=== PATIENT | male | born 1970 | race American Indian/Alaskan Native ===

== ENCOUNTER 2017-06-01 10:17 | Outpatient (CLI) | payer MEDICARE ==
[2017-06-01] MEDS ORDERED: XYLOCAINE TOPICAL 4% TP ONE (10:44)
== END 2017-06-01 10:18 | disposition home or self-care (01) ==
LOC: WOUND 10:17
PROVIDERS: ATTEND Internal Medicine
DX: L89.893 Pressure ulcer of other site, stage 3 (principal); G60.3 Idiopathic progressive neuropathy; G82.21 Paraplegia, complete; F17.200 Nicotine dependence, unspecified, uncomplicated
CPT/HCPCS: 11042; 11721; G0463

== ENCOUNTER 2017-06-15 09:11 | Outpatient (CLI) | payer MEDICARE ==
[2017-06-15] MEDS ORDERED: XYLOCAINE TOPICAL 4% TP ONE ×2 (10:05→10:22)
== END 2017-06-15 09:12 | disposition home or self-care (01) ==
LOC: WOUND 09:11
PROVIDERS: ATTEND Internal Medicine
DX: L89.893 Pressure ulcer of other site, stage 3 (principal); L97.512 Non-pressure chronic ulcer of other part of right foot with fat layer exposed; G60.3 Idiopathic progressive neuropathy; G82.21 Paraplegia, complete; F17.200 Nicotine dependence, unspecified, uncomplicated

== ENCOUNTER 2017-06-29 09:02 | Outpatient (CLI) | payer MEDICARE ==
[2017-06-29] MEDS ORDERED: XYLOCAINE TOPICAL 4% TP ONE (09:15)
== END 2017-06-29 09:03 | disposition home or self-care (01) ==
LOC: WOUND 09:02
PROVIDERS: ATTEND Internal Medicine
DX: L89.893 Pressure ulcer of other site, stage 3 (principal); L97.512 Non-pressure chronic ulcer of other part of right foot with fat layer exposed; G82.21 Paraplegia, complete; G60.3 Idiopathic progressive neuropathy; F17.200 Nicotine dependence, unspecified, uncomplicated

== ENCOUNTER 2017-07-23 09:10 | Outpatient (CLI) | payer MEDICARE ==
[2017-07-23] MEDS ORDERED: XYLOCAINE TOPICAL 4% TP ONE ×2 (09:31→09:40)
== END 2017-07-23 09:11 | disposition home or self-care (01) ==
LOC: WOUND 09:10
PROVIDERS: ATTEND Nurse Practitioner
DX: L89.893 Pressure ulcer of other site, stage 3 (principal); L97.512 Non-pressure chronic ulcer of other part of right foot with fat layer exposed; G82.21 Paraplegia, complete; G60.3 Idiopathic progressive neuropathy; F17.200 Nicotine dependence, unspecified, uncomplicated

== ENCOUNTER 2017-08-13 09:07 | Outpatient (CLI) | payer MEDICARE ==
[2017-08-13] MEDS ORDERED: XYLOCAINE TOPICAL 4% TP ONE (09:34)
== END 2017-08-13 09:08 | disposition home or self-care (01) ==
LOC: WOUND 09:07
PROVIDERS: ATTEND Surgery
DX: L89.893 Pressure ulcer of other site, stage 3 (principal); G82.21 Paraplegia, complete; G60.3 Idiopathic progressive neuropathy; F17.200 Nicotine dependence, unspecified, uncomplicated

== ENCOUNTER 2017-08-20 09:15 | Outpatient (CLI) | payer MEDICARE ==
[2017-08-20] MEDS ORDERED: XYLOCAINE TOPICAL 4% TP ONE ×2 (09:16→09:21)
== END 2017-08-20 09:16 | disposition home or self-care (01) ==
LOC: WOUND 09:15
PROVIDERS: ATTEND Surgery
DX: L89.893 Pressure ulcer of other site, stage 3 (principal); G82.21 Paraplegia, complete; G60.3 Idiopathic progressive neuropathy; F17.200 Nicotine dependence, unspecified, uncomplicated

== ENCOUNTER 2017-09-03 09:08 | Outpatient (CLI) | payer MEDICARE ==
[2017-09-03] MEDS ORDERED: XYLOCAINE TOPICAL 4% TP ONE (09:43)
== END 2017-09-03 09:09 | disposition home or self-care (01) ==
LOC: WOUND 09:08
PROVIDERS: ATTEND Surgery
DX: L89.893 Pressure ulcer of other site, stage 3 (principal); G82.21 Paraplegia, complete; G60.3 Idiopathic progressive neuropathy; F17.200 Nicotine dependence, unspecified, uncomplicated

== ENCOUNTER 2017-09-17 09:10 | Outpatient (CLI) | payer MEDICARE ==
[2017-09-17] MEDS ORDERED: XYLOCAINE TOPICAL 4% TP ONE (09:15)
== END 2017-09-17 09:11 | disposition home or self-care (01) ==
LOC: WOUND 09:10
PROVIDERS: ATTEND Surgery
DX: L89.893 Pressure ulcer of other site, stage 3 (principal); G82.21 Paraplegia, complete; G60.3 Idiopathic progressive neuropathy; F17.200 Nicotine dependence, unspecified, uncomplicated
CPT/HCPCS: 29581

== ENCOUNTER 2017-09-24 09:09 | Outpatient (CLI) | payer MEDICARE ==
[2017-09-24] MEDS ORDERED: XYLOCAINE TOPICAL 4% TP ONE ×2 (09:22→09:29)
== END 2017-09-24 09:10 | disposition home or self-care (01) ==
LOC: WOUND 09:09
PROVIDERS: ATTEND Surgery
DX: L89.893 Pressure ulcer of other site, stage 3 (principal); G82.21 Paraplegia, complete; G60.3 Idiopathic progressive neuropathy; F17.200 Nicotine dependence, unspecified, uncomplicated

== ENCOUNTER 2017-10-01 10:53 | Outpatient (CLI) | payer MEDICARE ==
[2017-10-01] MEDS ORDERED: XYLOCAINE TOPICAL 4% TP ONE ×2 (11:21→13:42)
== END 2017-10-01 10:54 | disposition home or self-care (01) ==
LOC: WOUND 10:53
PROVIDERS: ATTEND Surgery
DX: L89.893 Pressure ulcer of other site, stage 3 (principal); G82.21 Paraplegia, complete; G60.3 Idiopathic progressive neuropathy; F17.200 Nicotine dependence, unspecified, uncomplicated

== ENCOUNTER 2017-10-29 09:10 | Outpatient (CLI) | payer MEDICARE ==
[~2017-10-29 09:10] MED LIST: XYLOCAINE TOPICAL 4% TP ONE
== END 2017-10-29 09:11 | disposition home or self-care (01) ==
LOC: WOUND 09:10
PROVIDERS: ATTEND Surgery
DX: L89.893 Pressure ulcer of other site, stage 3 (principal); G82.21 Paraplegia, complete; G60.3 Idiopathic progressive neuropathy; F17.200 Nicotine dependence, unspecified, uncomplicated
CPT/HCPCS: 99213; G0463

== ENCOUNTER 2017-11-13 09:05 | Outpatient (CLI) | payer MEDICARE ==
[2017-11-13] MEDS ORDERED: SODIUM CHLORIDE FLUSH SYRINGE 10 ML IV ONE ×2 (09:33→12:31)
== END 2017-11-13 09:06 | disposition home or self-care (01) ==
LOC: WOUND 09:05
PROVIDERS: ATTEND Surgery
DX: L89.893 Pressure ulcer of other site, stage 3 (principal); G82.21 Paraplegia, complete; G60.3 Idiopathic progressive neuropathy; F17.200 Nicotine dependence, unspecified, uncomplicated
CPT/HCPCS: 15275; Q4158; 15271

== ENCOUNTER 2017-11-19 11:38 | Outpatient (CLI) | payer MEDICARE ==
[2017-11-19] MEDS ORDERED: SODIUM CHLORIDE FLUSH SYRINGE 10 ML IV ONE ×2 (12:12→14:35)
== END 2017-11-19 11:39 | disposition home or self-care (01) ==
LOC: WOUND 11:38
PROVIDERS: ATTEND Surgery
DX: L89.893 Pressure ulcer of other site, stage 3 (principal); G82.21 Paraplegia, complete; G60.3 Idiopathic progressive neuropathy; F17.200 Nicotine dependence, unspecified, uncomplicated
CPT/HCPCS: 15275; Q4158; 15271

== ENCOUNTER 2017-11-27 09:07 | Outpatient (CLI) | payer MEDICARE ==
[2017-11-27] MEDS ORDERED: SODIUM CHLORIDE FLUSH SYRINGE 10 ML IV ONE ×2 (09:24→10:52)
== END 2017-11-27 09:08 | disposition home or self-care (01) ==
LOC: WOUND 09:07
PROVIDERS: ATTEND Surgery
DX: L89.893 Pressure ulcer of other site, stage 3 (principal); G82.21 Paraplegia, complete; G60.3 Idiopathic progressive neuropathy; F17.200 Nicotine dependence, unspecified, uncomplicated
CPT/HCPCS: 15271; Q4158

== ENCOUNTER 2017-12-04 09:02 | Outpatient (CLI) | payer MEDICARE ==
[2017-12-04] MEDS ORDERED: SODIUM CHLORIDE FLUSH SYRINGE 10 ML IV ONE (09:25)
[2017-12-04] MEDS ORDERED: AD OINTMENT TP ONE (09:25)
[2017-12-04] MEDS ORDERED: AD OINTMENT TP PRN (12:00)
[2017-12-04] MEDS ORDERED: SODIUM CHLORIDE FLUSH SYRINGE 10 ML IV PRN (12:00)
== END 2017-12-04 09:03 | disposition home or self-care (01) ==
LOC: WOUND 09:02
PROVIDERS: ATTEND Surgery
DX: L89.893 Pressure ulcer of other site, stage 3 (principal); G82.21 Paraplegia, complete; G60.3 Idiopathic progressive neuropathy; F17.200 Nicotine dependence, unspecified, uncomplicated
CPT/HCPCS: 15275; Q4158; A6250

== ENCOUNTER 2017-12-11 07:56 | Outpatient (CLI) | payer MEDICARE ==
[2017-12-11] MEDS ORDERED: SODIUM CHLORIDE FLUSH SYRINGE 10 ML IV ONE (08:05)
[2017-12-11] MEDS ORDERED: XYLOCAINE TOPICAL 4% TP ONE (08:50)
== END 2017-12-11 07:57 | disposition home or self-care (01) ==
LOC: WOUND 07:56
PROVIDERS: ATTEND Surgery
DX: L89.893 Pressure ulcer of other site, stage 3 (principal); G82.21 Paraplegia, complete; G60.3 Idiopathic progressive neuropathy; F17.200 Nicotine dependence, unspecified, uncomplicated
CPT/HCPCS: 15271; Q4158

== ENCOUNTER 2017-12-25 09:05 | Outpatient (CLI) | payer MEDICARE ==
[2017-12-25] MEDS ORDERED: SODIUM CHLORIDE FLUSH SYRINGE 10 ML IV ONE ×2 (09:13→11:00)
== END 2017-12-25 09:06 | disposition home or self-care (01) ==
LOC: WOUND 09:05
PROVIDERS: ATTEND Surgery
DX: L89.893 Pressure ulcer of other site, stage 3 (principal); G82.21 Paraplegia, complete; G60.3 Idiopathic progressive neuropathy; F17.200 Nicotine dependence, unspecified, uncomplicated
CPT/HCPCS: 15275; Q4158

== ENCOUNTER 2018-03-12 09:01 | Outpatient (CLI) | payer MEDICARE | END 2018-03-12 09:02 | disposition home or self-care (01) | LOC: WOUND 09:01 | CPT/HCPCS: 97605 ==

== ENCOUNTER 2018-03-19 09:13 | Outpatient (CLI) | payer MEDICARE | END 2018-03-19 09:14 | disposition home or self-care (01) | LOC: WOUND 09:13 | CPT/HCPCS: 97605 ==

== ENCOUNTER 2018-03-26 09:07 | Outpatient (CLI) | payer MEDICARE | END 2018-03-26 09:08 | disposition home or self-care (01) | LOC: WOUND 09:07 | CPT/HCPCS: 97605 ==

== ENCOUNTER 2018-04-02 09:04 | Outpatient (CLI) | payer MEDICARE | END 2018-04-02 09:05 | disposition home or self-care (01) | LOC: WOUND 09:04 | CPT/HCPCS: 97605 ==

== ENCOUNTER 2018-04-08 13:00 | Outpatient (CLI) | payer MEDICARE ==
--- NOTE | 2018-04-08 17:29 | Cat Scan Report ---
FINAL REPORT EXAM: CT ABDOMEN PELVIS WO CON HISTORY: RIGHT ABDOMINAL PAIN TECHNIQUE: Axial images were performed from the lung bases to the pubic symphysis. Multiplanar refor mats are performed on the acquisition scanner. Total exam DLP 1572.30 mGy-cm Comparison: None FINDINGS: Clear lung bases. Unremarkable unenhanced liver, pancreas, gallbladder, left adrenal gland, and right kidney. Absent le ft kidney and spleen. Stomach is moderately distended with oral contrast. Oral contrast is present to the left lower quadra nt parastomal hernia. There appears to be a left lower quadrant double-barrel ostomy with herniation of the nonobstructed s mall bowel long the left aspect of the stoma. The colon is decompressed in the stoma. Contrast is seen throughout the stomach and nonobstructed appearing small bowel. Cecum is moderately distended with stool. There is significant stool throughout the right colon, transverse colon, and de scending colon. Urinary bladder is moderately distended. The prostate is upper limits normal size. Normal appendix right lower quadrant. Splenic flexure has herniated into the left upper quadrant fat. There does appear to be a very small splenule at the gastric fundus medially measuring 2.7 x 4.2 centimeters versus hypertrophic left lobe liver. No surgical clips are identified. There are small areas of nodularity adjacent to the gastric fundus. There is a suture margin in the p ancreatic tail. There are multiple small retroperitoneal lymph nodes. There are shotty bilateral iliac lymph nodes and lymph nodes around the rectum. These rectal lymph no micah are too prominent be normal. There are bilateral external iliac enlarged lymph nodes measuring up to 1.2 centimeter short axis quintin aterally. There is what appears to be right groin collapsed tube graft in the right common femoral artery. Ther e is marked stranding the right groin without a fluid collection. Multiple mildly prominent and enlar ged bilateral groin lymph nodes are rounded. There is dextroscoliosis lumbosacral spine with shallow left hip and degenerative arthritis. Rotated pelvis. The L1 vertebral body is heterogeneously sclerotic. 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 IMPRESSION: No etiology for right sided abdominal pain identified. 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 There is a suture margin of the pancreatic tail. 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 This is a double-barrel stoma. Colon portion is decompressed. Patient appears to be significantly constipated. Multiple enlarged external iliac and perirectal/inguinal lymph nodes. Correlate with any history of r ectal or colon cancer. Consider CT PET if there is any positive history for GI neoplasm. There is postsurgical change in the right groin with what appears to be a right groin collapsed vascu lar graft. If there is not a history of vascular grafting in the right groin, consider foreign body. 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
== END 2018-04-08 13:01 | disposition home or self-care (01) ==
LOC: CT 13:00
PROVIDERS: ATTEND Internal Medicine
DX: R10.31 Right lower quadrant pain (principal); Z98.890 Other specified postprocedural states
CPT/HCPCS: 74176

== ENCOUNTER 2018-04-09 09:06 | Outpatient (CLI) | payer MEDICARE | END 2018-04-09 09:07 | disposition home or self-care (01) | LOC: WOUND 09:06 | CPT/HCPCS: 97605 ==

== ENCOUNTER 2018-04-16 09:02 | Outpatient (CLI) | payer MEDICARE | END 2018-04-16 09:03 | disposition home or self-care (01) | LOC: WOUND 09:02 | CPT/HCPCS: 97605 ==

== ENCOUNTER 2018-04-30 09:06 | Outpatient (CLI) | payer MEDICARE ==
[2018-04-30] MEDS ORDERED: SILVER NITRATE TP NR (10:00)
== END 2018-04-30 09:07 | disposition home or self-care (01) ==
LOC: WOUND 09:06
PROVIDERS: ATTEND Surgery
DX: L89.893 Pressure ulcer of other site, stage 3 (principal); L97.512 Non-pressure chronic ulcer of other part of right foot with fat layer exposed; G60.3 Idiopathic progressive neuropathy; G82.21 Paraplegia, complete; F17.200 Nicotine dependence, unspecified, uncomplicated
CPT/HCPCS: 97605

== ENCOUNTER 2018-06-04 09:04 | Outpatient (CLI) | payer MEDICARE | END 2018-06-04 09:05 | disposition home or self-care (01) | LOC: WOUND 09:04 | CPT/HCPCS: C5275 ==

== ENCOUNTER 2018-06-11 09:05 | Outpatient (CLI) | payer MEDICARE | END 2018-06-11 09:06 | disposition home or self-care (01) | LOC: WOUND 09:05 | PROVIDERS: ATTEND Surgery | DX: L89.891 Pressure ulcer of other site, stage 1 (principal); G82.21 Paraplegia, complete; G60.3 Idiopathic progressive neuropathy; F12.90 Cannabis use, unspecified, uncomplicated; F17.200 Nicotine dependence, unspecified, uncomplicated | CPT/HCPCS: 99213; G0463 ==

== ENCOUNTER 2018-06-18 09:03 | Outpatient (CLI) | payer MEDICARE | END 2018-06-18 09:04 | disposition home or self-care (01) | LOC: WOUND 09:03 | PROVIDERS: ATTEND Surgery | DX: L89.893 Pressure ulcer of other site, stage 3 (principal); L84 Corns and callosities; G60.3 Idiopathic progressive neuropathy; G82.21 Paraplegia, complete; F12.90 Cannabis use, unspecified, uncomplicated; F17.200 Nicotine dependence, unspecified, uncomplicated | CPT/HCPCS: C5275 ==

== ENCOUNTER 2018-06-25 09:09 | Outpatient (CLI) | payer MEDICARE ==
[2018-06-25] MEDS ORDERED: XYLOCAINE TOPICAL 4% TP ONE (09:43)
== END 2018-06-25 09:10 | disposition home or self-care (01) ==
LOC: WOUND 09:09
PROVIDERS: ATTEND Surgery
DX: L89.893 Pressure ulcer of other site, stage 3 (principal); G60.3 Idiopathic progressive neuropathy; G82.21 Paraplegia, complete; L84 Corns and callosities; F17.200 Nicotine dependence, unspecified, uncomplicated
CPT/HCPCS: C5275

== ENCOUNTER 2018-07-02 09:11 | Outpatient (CLI) | payer MEDICARE ==
[2018-07-02] MEDS ORDERED: AD OINTMENT TP SCH (10:00)
== END 2018-07-02 09:12 | disposition home or self-care (01) ==
LOC: WOUND 09:11
PROVIDERS: ATTEND Surgery
DX: L89.893 Pressure ulcer of other site, stage 3 (principal); G60.3 Idiopathic progressive neuropathy; G82.21 Paraplegia, complete; F12.90 Cannabis use, unspecified, uncomplicated; F17.200 Nicotine dependence, unspecified, uncomplicated
CPT/HCPCS: 99214; G0463

== ENCOUNTER 2018-07-09 13:43 | Outpatient (CLI) | payer MEDICARE | END 2018-07-09 13:44 | disposition home or self-care (01) | LOC: WOUND 13:43 | PROVIDERS: ATTEND Surgery | DX: L89.893 Pressure ulcer of other site, stage 3 (principal); G60.3 Idiopathic progressive neuropathy; G82.21 Paraplegia, complete; F12.90 Cannabis use, unspecified, uncomplicated; F17.200 Nicotine dependence, unspecified, uncomplicated | CPT/HCPCS: 99214; G0463 ==

== ENCOUNTER 2018-07-30 09:06 | Outpatient (CLI) | payer MEDICARE | END 2018-07-30 09:07 | disposition home or self-care (01) | LOC: WOUND 09:06 | PROVIDERS: ATTEND Surgery | DX: L89.893 Pressure ulcer of other site, stage 3 (principal); L97.512 Non-pressure chronic ulcer of other part of right foot with fat layer exposed; L97.522 Non-pressure chronic ulcer of other part of left foot with fat layer exposed; G60.3 Idiopathic progressive neuropathy; G82.21 Paraplegia, complete; F12.90 Cannabis use, unspecified, uncomplicated; F17.200 Nicotine dependence, unspecified, uncomplicated ==

== ENCOUNTER 2018-09-03 09:01 | Outpatient (CLI) | payer MEDICARE | END 2018-09-03 09:02 | disposition home or self-care (01) | LOC: WOUND 09:01 | PROVIDERS: ATTEND Surgery | DX: L89.893 Pressure ulcer of other site, stage 3 (principal); L97.512 Non-pressure chronic ulcer of other part of right foot with fat layer exposed; L97.522 Non-pressure chronic ulcer of other part of left foot with fat layer exposed; L84 Corns and callosities; G60.3 Idiopathic progressive neuropathy; G82.21 Paraplegia, complete; F12.90 Cannabis use, unspecified, uncomplicated; F17.200 Nicotine dependence, unspecified, uncomplicated ==

== ENCOUNTER 2018-09-17 08:05 | Outpatient (CLI) | payer MEDICARE | END 2018-09-17 08:06 | disposition home or self-care (01) | LOC: WOUND 08:05 | PROVIDERS: ATTEND Surgery | DX: L89.893 Pressure ulcer of other site, stage 3 (principal); L97.512 Non-pressure chronic ulcer of other part of right foot with fat layer exposed; L97.522 Non-pressure chronic ulcer of other part of left foot with fat layer exposed; L84 Corns and callosities; G60.3 Idiopathic progressive neuropathy; G82.21 Paraplegia, complete; F12.90 Cannabis use, unspecified, uncomplicated; F17.200 Nicotine dependence, unspecified, uncomplicated ==

== ENCOUNTER 2018-10-08 09:04 | Outpatient (CLI) | payer MEDICARE | END 2018-10-08 09:05 | disposition home or self-care (01) | LOC: WOUND 09:04 | PROVIDERS: ATTEND Surgery | DX: L89.893 Pressure ulcer of other site, stage 3 (principal); L97.522 Non-pressure chronic ulcer of other part of left foot with fat layer exposed; G60.3 Idiopathic progressive neuropathy; G82.21 Paraplegia, complete; F12.90 Cannabis use, unspecified, uncomplicated; F17.200 Nicotine dependence, unspecified, uncomplicated ==

== ENCOUNTER 2018-10-15 09:07 | Outpatient (CLI) | payer MEDICARE | END 2018-10-15 09:08 | disposition home or self-care (01) | LOC: WOUND 09:07 | PROVIDERS: ATTEND Surgery | DX: L89.893 Pressure ulcer of other site, stage 3 (principal); L97.522 Non-pressure chronic ulcer of other part of left foot with fat layer exposed; G60.3 Idiopathic progressive neuropathy; G82.21 Paraplegia, complete; F17.200 Nicotine dependence, unspecified, uncomplicated | CPT/HCPCS: C5275; Q4117 ==

== ENCOUNTER 2018-10-29 09:04 | Outpatient (CLI) | payer MEDICARE | END 2018-10-29 09:05 | disposition home or self-care (01) | LOC: WOUND 09:04 | PROVIDERS: ATTEND Surgery | DX: L89.893 Pressure ulcer of other site, stage 3 (principal); L97.522 Non-pressure chronic ulcer of other part of left foot with fat layer exposed; G60.3 Idiopathic progressive neuropathy; G82.21 Paraplegia, complete; F17.200 Nicotine dependence, unspecified, uncomplicated | CPT/HCPCS: 99213; G0463 ==

== ENCOUNTER 2018-11-12 09:02 | Outpatient (CLI) | payer MEDICARE | END 2018-11-12 09:03 | disposition home or self-care (01) | LOC: WOUND 09:02 | PROVIDERS: ATTEND Surgery | DX: L89.893 Pressure ulcer of other site, stage 3 (principal); L97.522 Non-pressure chronic ulcer of other part of left foot with fat layer exposed; G60.3 Idiopathic progressive neuropathy; G82.21 Paraplegia, complete; F17.200 Nicotine dependence, unspecified, uncomplicated | CPT/HCPCS: C5275; Q4117 ==

== ENCOUNTER 2018-12-10 09:08 | Outpatient (CLI) | payer MEDICARE | END 2018-12-10 09:09 | disposition home or self-care (01) | LOC: WOUND 09:08 | PROVIDERS: ATTEND Surgery | DX: L89.893 Pressure ulcer of other site, stage 3 (principal); L97.512 Non-pressure chronic ulcer of other part of right foot with fat layer exposed; G60.3 Idiopathic progressive neuropathy; G82.21 Paraplegia, complete; F17.200 Nicotine dependence, unspecified, uncomplicated; F12.90 Cannabis use, unspecified, uncomplicated | CPT/HCPCS: 99214; G0463 ==

== ENCOUNTER 2018-12-31 09:03 | Outpatient (CLI) | payer MEDICARE | END 2018-12-31 09:04 | disposition home or self-care (01) | LOC: WOUND 09:03 | PROVIDERS: ATTEND Surgery | DX: L89.893 Pressure ulcer of other site, stage 3 (principal); L97.512 Non-pressure chronic ulcer of other part of right foot with fat layer exposed; G60.3 Idiopathic progressive neuropathy; G82.21 Paraplegia, complete; F17.200 Nicotine dependence, unspecified, uncomplicated; F12.90 Cannabis use, unspecified, uncomplicated ==

== ENCOUNTER 2019-01-14 09:05 | Outpatient (CLI) | payer MEDICARE | END 2019-01-14 09:06 | disposition home or self-care (01) | LOC: WOUND 09:05 | PROVIDERS: ATTEND Surgery | DX: L89.893 Pressure ulcer of other site, stage 3 (principal); L97.512 Non-pressure chronic ulcer of other part of right foot with fat layer exposed; G60.3 Idiopathic progressive neuropathy; G82.21 Paraplegia, complete; F12.90 Cannabis use, unspecified, uncomplicated; F17.200 Nicotine dependence, unspecified, uncomplicated ==

== ENCOUNTER 2020-12-24 08:27 | Outpatient (CLI) | payer MEDICARE | END 2020-12-24 08:28 | disposition home or self-care (01) | LOC: WOUND 08:27 | PROVIDERS: ATTEND Surgery | DX: L89.893 Pressure ulcer of other site, stage 3 (principal); L97.522 Non-pressure chronic ulcer of other part of left foot with fat layer exposed; G62.9 Polyneuropathy, unspecified; L84 Corns and callosities; F17.290 Nicotine dependence, other tobacco product, uncomplicated; F11.90 Opioid use, unspecified, uncomplicated; Z90.81 Acquired absence of spleen | CPT/HCPCS: 11042; G0463; 99215 ==

== ENCOUNTER 2021-01-07 08:20 | Outpatient (CLI) | payer MEDICARE | END 2021-01-07 08:21 | disposition home or self-care (01) | LOC: WOUND 08:20 | PROVIDERS: ATTEND Surgery | DX: L89.893 Pressure ulcer of other site, stage 3 (principal); L97.522 Non-pressure chronic ulcer of other part of left foot with fat layer exposed; G62.9 Polyneuropathy, unspecified; L84 Corns and callosities; F17.290 Nicotine dependence, other tobacco product, uncomplicated; F11.90 Opioid use, unspecified, uncomplicated; Z90.81 Acquired absence of spleen ==

== ENCOUNTER 2021-01-21 08:39 | Outpatient (CLI) | payer MEDICARE | END 2021-01-21 08:40 | disposition home or self-care (01) | LOC: WOUND 08:39 | PROVIDERS: ATTEND Surgery | DX: L89.893 Pressure ulcer of other site, stage 3 (principal); L84 Corns and callosities; G82.20 Paraplegia, unspecified; G62.9 Polyneuropathy, unspecified; M21.612 Bunion of left foot; F17.290 Nicotine dependence, other tobacco product, uncomplicated; F11.90 Opioid use, unspecified, uncomplicated; Z90.81 Acquired absence of spleen; Z88.0 Allergy status to penicillin ==

== ENCOUNTER 2021-02-25 08:42 | Outpatient (CLI) | payer MEDICARE | END 2021-02-25 08:43 | disposition home or self-care (01) | LOC: WOUND 08:42 | PROVIDERS: ATTEND Surgery | DX: L89.893 Pressure ulcer of other site, stage 3 (principal); S91.302D Unspecified open wound, left foot, subsequent encounter; L84 Corns and callosities; G82.20 Paraplegia, unspecified; G62.9 Polyneuropathy, unspecified; M21.612 Bunion of left foot; F17.290 Nicotine dependence, other tobacco product, uncomplicated; F11.90 Opioid use, unspecified, uncomplicated; Z90.81 Acquired absence of spleen; Z88.0 Allergy status to penicillin; X58.XXXD Exposure to other specified factors, subsequent encounter | CPT/HCPCS: C5275; Q4117 ==

== ENCOUNTER 2021-03-18 13:04 | Outpatient (CLI) | payer MEDICARE | END 2021-03-18 13:05 | disposition home or self-care (01) | LOC: WOUND 13:04 | PROVIDERS: ATTEND Surgery | DX: L89.893 Pressure ulcer of other site, stage 3 (principal); S91.302D Unspecified open wound, left foot, subsequent encounter; L84 Corns and callosities; G82.20 Paraplegia, unspecified; G62.9 Polyneuropathy, unspecified; M21.612 Bunion of left foot; F17.290 Nicotine dependence, other tobacco product, uncomplicated; F11.90 Opioid use, unspecified, uncomplicated; Z90.81 Acquired absence of spleen; Z88.0 Allergy status to penicillin; X58.XXXD Exposure to other specified factors, subsequent encounter | CPT/HCPCS: 15275; Q4121 ==

== ENCOUNTER 2021-04-01 13:47 | Outpatient (CLI) | payer MEDICARE | END 2021-04-01 13:48 | disposition home or self-care (01) | LOC: WOUND 13:47 | PROVIDERS: ATTEND Surgery | DX: L89.893 Pressure ulcer of other site, stage 3 (principal); S91.302D Unspecified open wound, left foot, subsequent encounter; L84 Corns and callosities; G82.20 Paraplegia, unspecified; G62.9 Polyneuropathy, unspecified; M21.612 Bunion of left foot; F17.290 Nicotine dependence, other tobacco product, uncomplicated; F11.90 Opioid use, unspecified, uncomplicated; Z90.81 Acquired absence of spleen; Z88.0 Allergy status to penicillin; X58.XXXD Exposure to other specified factors, subsequent encounter | CPT/HCPCS: C5275; Q4117 ==

== ENCOUNTER 2021-04-15 13:00 | Outpatient (CLI) | payer MEDICARE | END 2021-04-15 13:01 | disposition home or self-care (01) | LOC: WOUND 13:00 | PROVIDERS: ATTEND Surgery | DX: L89.893 Pressure ulcer of other site, stage 3 (principal); S91.302D Unspecified open wound, left foot, subsequent encounter; L84 Corns and callosities; G82.20 Paraplegia, unspecified; G62.9 Polyneuropathy, unspecified; M21.612 Bunion of left foot; F17.290 Nicotine dependence, other tobacco product, uncomplicated; F11.90 Opioid use, unspecified, uncomplicated; Z90.81 Acquired absence of spleen; Z88.0 Allergy status to penicillin; X58.XXXD Exposure to other specified factors, subsequent encounter | CPT/HCPCS: 15275; Q4186 ==

== ENCOUNTER 2021-04-29 13:06 | Outpatient (CLI) | payer MEDICARE | END 2021-04-29 13:07 | disposition home or self-care (01) | LOC: WOUND 13:06 | PROVIDERS: ATTEND Surgery | DX: L89.893 Pressure ulcer of other site, stage 3 (principal); M21.612 Bunion of left foot; S91.302D Unspecified open wound, left foot, subsequent encounter; G62.9 Polyneuropathy, unspecified; G82.20 Paraplegia, unspecified; F11.90 Opioid use, unspecified, uncomplicated; F17.200 Nicotine dependence, unspecified, uncomplicated; Z90.81 Acquired absence of spleen; Z98.890 Other specified postprocedural states; X58.XXXD Exposure to other specified factors, subsequent encounter | CPT/HCPCS: 15275; Q4186 ==

== ENCOUNTER 2021-05-13 13:09 | Outpatient (CLI) | payer MEDICARE | END 2021-05-13 13:10 | disposition home or self-care (01) | LOC: WOUND 13:09 | PROVIDERS: ATTEND Surgery | DX: L89.893 Pressure ulcer of other site, stage 3 (principal); M21.612 Bunion of left foot; S91.302D Unspecified open wound, left foot, subsequent encounter; G62.9 Polyneuropathy, unspecified; G82.20 Paraplegia, unspecified; F17.200 Nicotine dependence, unspecified, uncomplicated; F11.90 Opioid use, unspecified, uncomplicated; Z88.0 Allergy status to penicillin; Z90.81 Acquired absence of spleen; Z98.890 Other specified postprocedural states; X58.XXXD Exposure to other specified factors, subsequent encounter | CPT/HCPCS: 15275; Q4186 ==

== ENCOUNTER 2021-05-27 13:04 | Outpatient (CLI) | payer MEDICARE | END 2021-05-27 13:05 | disposition home or self-care (01) | LOC: WOUND 13:04 | PROVIDERS: ATTEND Surgery | DX: L89.893 Pressure ulcer of other site, stage 3 (principal); M21.612 Bunion of left foot; S91.302D Unspecified open wound, left foot, subsequent encounter; G62.9 Polyneuropathy, unspecified; G82.20 Paraplegia, unspecified; F17.200 Nicotine dependence, unspecified, uncomplicated; F11.90 Opioid use, unspecified, uncomplicated; Z88.0 Allergy status to penicillin; Z90.81 Acquired absence of spleen; Z98.890 Other specified postprocedural states; X58.XXXD Exposure to other specified factors, subsequent encounter | CPT/HCPCS: 15275; Q4186 ==

== ENCOUNTER 2021-06-24 13:05 | Outpatient (CLI) | payer MEDICARE | END 2021-06-24 13:06 | disposition home or self-care (01) | LOC: WOUND 13:05 | PROVIDERS: ATTEND Surgery | DX: L89.893 Pressure ulcer of other site, stage 3 (principal); M21.612 Bunion of left foot; S91.302D Unspecified open wound, left foot, subsequent encounter; G62.9 Polyneuropathy, unspecified; G82.20 Paraplegia, unspecified; F17.200 Nicotine dependence, unspecified, uncomplicated; F11.90 Opioid use, unspecified, uncomplicated; Z88.0 Allergy status to penicillin; Z90.81 Acquired absence of spleen; Z98.890 Other specified postprocedural states; X58.XXXD Exposure to other specified factors, subsequent encounter ==

== ENCOUNTER 2021-07-15 13:24 | Outpatient (CLI) | payer MEDICARE | END 2021-07-15 13:25 | disposition home or self-care (01) | LOC: WOUND 13:24 | PROVIDERS: ATTEND Surgery | DX: L89.893 Pressure ulcer of other site, stage 3 (principal); M21.612 Bunion of left foot; S91.302D Unspecified open wound, left foot, subsequent encounter; G62.9 Polyneuropathy, unspecified; G82.20 Paraplegia, unspecified; F17.200 Nicotine dependence, unspecified, uncomplicated; F11.90 Opioid use, unspecified, uncomplicated; Z88.0 Allergy status to penicillin; Z90.81 Acquired absence of spleen; Z98.890 Other specified postprocedural states; X58.XXXD Exposure to other specified factors, subsequent encounter ==

== ENCOUNTER 2021-08-12 13:38 | Outpatient (CLI) | payer MEDICARE | END 2021-08-12 13:39 | disposition home or self-care (01) | LOC: WOUND 13:38 | PROVIDERS: ATTEND Surgery | DX: L89.893 Pressure ulcer of other site, stage 3 (principal); M21.612 Bunion of left foot; S91.302D Unspecified open wound, left foot, subsequent encounter; G62.9 Polyneuropathy, unspecified; G82.20 Paraplegia, unspecified; F17.200 Nicotine dependence, unspecified, uncomplicated; F11.90 Opioid use, unspecified, uncomplicated; Z88.0 Allergy status to penicillin; Z90.81 Acquired absence of spleen; Z98.890 Other specified postprocedural states; X58.XXXD Exposure to other specified factors, subsequent encounter | CPT/HCPCS: 99212; G0463 ==